=== PATIENT | female | born 1985 | race African-American/Black ===

== ENCOUNTER 2021-10-20 18:42 | Inpatient (IN) | payer BC ==
[~2021-10-20] VITALS: Ht 177.8 cm; Wt 101.4 kg
[2021-10-20 20:49] VITALS: BP 150/84; PULSE 85; TEMP 97.5
[2021-10-21 00:01] VITALS: BP 148/93; PULSE 76; TEMP 98.2
[2021-10-21 04:10] VITALS: BP 141/89; PULSE 81; TEMP 98.3
[2021-10-21] MEDS ORDERED: AMBIEN 5MG TABLE5 MG (04:12)
[2021-10-21] MEDS ORDERED: ATIVAN 0.50.5 MG/TAB (04:12)
[2021-10-21 06:34] LABS: BASO % 0.2 % (0.0-2.0); EOS % 0.5 % (0.0-4.0); GRAN # 3.4 K/mm3 (1.4-6.5); GRAN % 77.9 % (42.2-75.2); HEMOGLOBIN 11.5 g/dl (12.5-16.0); LYMPH # 0.6 K/mm3 (1.2-3.4); LYMPH % 13.2 % (20.0-51.0); MEAN CELL VOLUME 96 fl (80.0-100.0); MEAN CORPUSCULAR HEMOGLOBIN 34 pg (27-31); MEAN CORPUSCULAR HGB CONC 35 g/dl (33.0-37.0); MEAN PLATELET VOLUME 10.4 fl (7.4-10.4); MONO # 0.4 K/mm3 (0.1-0.6); PLATELET COUNT 414 K/mm3 (130-400)
[2021-10-21 06:37] LABS: HEMATOCRIT 32.6 % (37.0-47.0)
[2021-10-21 06:43] LABS: BILIRUBIN,TOTAL 1.2 mg/dL (0.2-1.2); CALCIUM 7.9 mg/dL (8.4-10.2); CREATININE, serum 0.75 mg/dL (0.57-1.11); MAGNESIUM 1.7 mg/dL (1.6-2.6); TOTAL PROTEIN 6.1 gm/dL (6.2-8.1)
--- NOTE | 2021-10-21 07:07 | NUR ---
PATIENT ARRIVED TO FLOOR APPROX 2029. PATIENT HAD COMPLAINTS OF NAUSEA AND DID HAVE 2 EPISODES OF EMESIS. ZOFRAN GIVEN AND PATIENT STILL THREW UP. PATIENT GIVEN 2 DOSES OF IV PHENERGAN AND PATIENT REPORTED EFFECTIVENESS. PATIENT ALSO RECEIVED TWO DOSES OF PRN MORPHINE. PATIENT APPEARED TO REST COMFORTABLY THIS SHIFT.
[2021-10-21 08:19] VITALS: BP 131/86; PULSE 77; TEMP 98.5
--- NOTE | 2021-10-21 09:47 | NUR ---
Initial visit; Patient thanked Service Superintendent for looking in on her and offering information regarding what Service Superintendent can do for her. Patient thanked Service Superintendent who offered God's blessings.
--- NOTE | 2021-10-21 10:30 | NUR ---
PATIENT ALERT AND ORIENTED X4. VSS. PATIENT HERE FOR ABDOMINAL PAIN. PATIENT REPORTS PAIN 6/10, REQUESTS PAIN MEDICATION. IV TO RIGHT AC WITH NS RUNNING AT 100. CONSENT OBTAINED. PATIENT RESTING IN BED WITH CALL LIGHT NEAR.
[2021-10-21 12:00] VITALS: BP 132/88; PULSE 77; TEMP 98
--- NOTE | 2021-10-21 12:31 | NUR ---
Patient currently off floor for procedure. Will attempt to meet at a later time.
--- NOTE | 2021-10-21 14:29 | NUR ---
chute worker met with patient to complete intake and discuss discharge plan. Patient reports that she lives at home in [place] alone. She is independent with her ADL's and does not utilize any DME to assist with mobility and has no home oxygen needs. PCP is Jennifer Starks at [facility] and she utilizes [facility] for prescriptions. Patient reports that she does not have a DPOA-HC established. She is not legally and does not have any adult children. Patient's established NOK is her father Nhan Gonzalez ([phone]). Patient asks about her [place] paperwork, stating that she contacted her PCP office and they told her "the hospital fills it out". I explained that it is usually the PCP. SW made phone call to PCP officer who states that if she was to actually have surgery, the surgeon fills it out, but if not she will need to make an appointment with her PCP to complete the paperwork. Discharge plan: Home
[2021-10-21 16:54] VITALS: BP 136/86; PULSE 78; TEMP 97.9
[2021-10-21] MEDS ORDERED: BRINTELLIX10 PO (19:45)
[2021-10-21] MEDS ORDERED: AMBIEN CR 12.12.5 MG PO (19:47)
[2021-10-21] MEDS ORDERED: ATIVAN 1MG T1 MG/TAB PO (19:47)
[2021-10-21 20:14] VITALS: BP 146/95; PULSE 77; TEMP 97.4
--- NOTE | 2021-10-21 22:39 | NUR ---
SHIFT REPORT FROM JOE WELLS. PATIENT IN BED, ALERT AND ORIENTED. C/O NAUSEA AND PRN PHENERGAN WAS GIVEN. C/O MILD ABD PAIN AND PRN MORPHINE WAS GIVEN. IV WAS LEAKING AND NEW DRESSING APPLIED, IV APPEARS TO BE WORKING WITHOUT ISSUE AT THIS TIME. REQUESTS HOME MEDICATIONS AND [facility] WAS NOTIFIED. DENIES ADDITIONAL ORDERS AT THIS TIME. CALL LIGHT IN REACH.
[2021-10-22 00:13] VITALS: BP 133/78; PULSE 69; TEMP 98
[2021-10-22 04:10] VITALS: BP 140/99; PULSE 64; TEMP 98.2
[2021-10-22 07:44] VITALS: BP 128/90; PULSE 68; TEMP 98.4
[2021-10-22 09:39] LABS: HEMOGLOBIN 10.5 g/dl (12.5-16.0); MEAN CELL VOLUME 98 fl (80.0-100.0); MEAN CORPUSCULAR HEMOGLOBIN 33 pg (27-31); MEAN CORPUSCULAR HGB CONC 34 g/dl (33.0-37.0); MEAN PLATELET VOLUME 10.1 fl (7.4-10.4); PLATELET COUNT 380 K/mm3 (130-400); RED BLOOD COUNT 3.17 M/mm3 (4.10-5.30); REDCELL DISTRIBUTION WIDTH-CV 13.3 % (11.5-14.5)
[2021-10-22 09:42] LABS: HEMATOCRIT 30.9 % (37.0-47.0)
[2021-10-22 12:28] VITALS: BP 138/83; PULSE 68; TEMP 98.8
--- NOTE | 2021-10-22 13:08 | NUR ---
PATIENT ALERT AND ORIENTED X4. VSS. PATIENT HERE FOR RULE OUT OF ENTERITIS VS PANCREATITIS. PATIENT COMPLAINS OF PAIN IN ABDOMEN, RATING 8/10. PATIENT REQUESTS PAIN MEDICATION. NS RUNNING AT 100ML/HOUR IN LEFT FOREARM. PATIENT ON ROOM AIR. ASSESSMENT PERFORMED. AM MEDS ADMINISTERED. PATIENT RESTING IN BED WITH CALL LIGHT NEAR.
[2021-10-22 17:23] VITALS: BP 136/86; PULSE 65; TEMP 98.8
[2021-10-22 20:24] VITALS: BP 148/85; PULSE 73; TEMP 97.7
--- NOTE | 2021-10-22 21:05 | NUR ---
PATIENT IN BED ON ROOM ENTRY. C/O MODERATE PAIN, PRN MORPHINE GIVEN. HS MEDS PER EMAR. TOLERATED CLEAR LIQUID DINNER. IVF INFUSING TO L FA IV WITHOUT ISSUE. DENIES ADDITIONAL NEEDS, CALL LIGHT IN REACH.
[2021-10-23 00:49] VITALS: BP 127/86; PULSE 66; TEMP 98.4
[2021-10-23 04:24] VITALS: BP 132/78; PULSE 65; TEMP 98.6
[2021-10-23 07:00] LABS: BASO % 1.3 % (0.0-2.0); EOS # 0.1 K/mm3 (0.0-0.7); EOS % 3.3 % (0.0-4.0); GRAN # 1.5 K/mm3 (1.4-6.5); GRAN % 49.9 % (42.2-75.2); HEMOGLOBIN 10.8 g/dl (12.5-16.0); LYMPH # 1.1 K/mm3 (1.2-3.4); LYMPH % 34.5 % (20.0-51.0); MEAN CELL VOLUME 102 fl (80.0-100.0); MEAN CORPUSCULAR HEMOGLOBIN 33 pg (27-31); MEAN CORPUSCULAR HGB CONC 32 g/dl (33.0-37.0); MEAN PLATELET VOLUME 10.9 fl (7.4-10.4); MONO # 0.3 K/mm3 (0.1-0.6); MONO % 10.7 % (1.7-9.3); PLATELET COUNT 414 K/mm3 (130-400); RED BLOOD COUNT 3.26 M/mm3 (4.10-5.30); REDCELL DISTRIBUTION WIDTH-CV 13.5 % (11.5-14.5)
[2021-10-23 07:05] LABS: HEMATOCRIT 33.3 % (37.0-47.0)
[2021-10-23 07:21] LABS: ALBUMIN 2.7 gm/dL (3.5-5.0); BILIRUBIN,TOTAL 0.4 mg/dL (0.2-1.2); CALCIUM 8.1 mg/dL (8.4-10.2); CREATININE, serum 0.73 mg/dL (0.57-1.11); POTASSIUM 3.6 mmol/L (3.5-4.5); TOTAL PROTEIN 5.7 gm/dL (6.2-8.1)
[2021-10-23 07:22] VITALS: BP 137/92; PULSE 63; TEMP 98.6
--- NOTE | 2021-10-23 09:12 | NUR ---
PATIENT ALERT AND ORIENTED X4. VSS. PATIENT COMPLAINS OF PAIN 2/10, STATES THAT LEVEL IS TOLERABLE. PATIENT ON ROOM AIR. BOWEL SOUNDS ACTIVE. PATIENT REPORTS TWO BOWEL MOVEMENTS ON 10/22. PATIENT REPORTS SHE IS PASSING GAS AND IS VOIDING WITHOUT ISSUES. IV TO LEFT FOREARM WITH NS RUNNING AT 75ML/HOUR. PATIENT REPORTS ANXIOUSNESS, REQUESTS ATIVAN. PATIENT RESTING IN BED WITH CALL LIGHT NEAR.
[2021-10-23] MEDS ORDERED: PROTONIX 40MG T40 MG PO (12:31)
[2021-10-23] MEDS ORDERED: CVS SPECTRAVIT1 EA15 PO (12:46)
[2021-10-23] MEDS ORDERED: FERROUSAL325 MG PO (12:46)
[2021-10-23] MEDS ORDERED: VITAMIN B12 781 TAB PO (12:46)
--- NOTE | 2021-10-23 15:10 | NUR ---
DISCHARGE INSTRUCTIONS PROVIDED. PATIENT EDUCATION GIVEN. FOLLOW UP APPOINTMENTS DISCUSSED. PATIENT DENIES ANY QUESTIONS OR CONCERNS. IV DC'D. PATIENT ESCORTED OUT VIA WHEELCHAIR.
[2021-10-24] MEDS ORDERED: ROXICODONE 55 MG/TAB PO (15:46)
[2021-10-24] MEDS ORDERED: ZOFRAN ODT4 MG PO (15:46)
== END 2021-10-23 15:00 | disposition home or self-care (01) | DRG 391 ==
LOC: SURG 18:42
PROVIDERS: Internal Medicine Gastroenterology; Student in an Organized Health Care Education/Training Program; ADMIT Internal Medicine
PROC: 0DJ08ZZ Inspection of Upper Intestinal Tract, Via Natural or Artificial Opening Endoscopic (ICD-10-PCS; principal; 2021-10-21 10:30)
DX: K91.2 Postsurgical malabsorption, not elsewhere classified (principal); K85.90 Acute pancreatitis without necrosis or infection, unspecified; K56.609 Unspecified intestinal obstruction, unspecified as to partial versus complete obstruction; F32.A Depression, unspecified; F41.9 Anxiety disorder, unspecified; K26.9 Duodenal ulcer, unspecified as acute or chronic, without hemorrhage or perforation; K52.9 Noninfective gastroenteritis and colitis, unspecified; Z72.89 Other problems related to lifestyle; Z90.49 Acquired absence of other specified parts of digestive tract
CPT/HCPCS: C9113; J2270; J2405; J2550; J2704; J3411; J3475; J7030

== ENCOUNTER 2021-10-24 13:43 | Emergency (ER) | payer BC ==
[~2021-10-24] VITALS: Ht 177.8 cm; Wt 98.2 kg
[~2021-10-24 13:43] MED LIST: AMBIEN 5MG TABLE5 MG; AMBIEN CR 12.12.5 MG PO; ATIVAN 0.50.5 MG/TAB; ATIVAN 1MG T1 MG/TAB PO; BRINTELLIX10 PO; CVS SPECTRAVIT1 EA15 PO; FERROUSAL325 MG PO; PROTONIX 40MG T40 MG PO; VITAMIN B12 781 TAB PO
[2021-10-24 13:58] VITALS: BP 162/74; PULSE 80; TEMP 98.7
[2021-10-24 14:43] LABS: BASO % 0.6 % (0.0-2.0); EOS # 0.1 K/mm3 (0.0-0.7); EOS % 1.4 % (0.0-4.0); GRAN # 3.5 K/mm3 (1.4-6.5); GRAN % 70.1 % (42.2-75.2); LYMPH # 0.9 K/mm3 (1.2-3.4); LYMPH % 18.7 % (20.0-51.0); MEAN CORPUSCULAR HEMOGLOBIN 33 pg (27-31); MEAN CORPUSCULAR HGB CONC 35 g/dl (33.0-37.0); MEAN PLATELET VOLUME 10.1 fl (7.4-10.4); MONO # 0.5 K/mm3 (0.1-0.6); MONO % 9.2 % (1.7-9.3); PLATELET COUNT 472 K/mm3 (130-400); RED BLOOD COUNT 3.61 M/mm3 (4.10-5.30)
[2021-10-24 14:48] LABS: SQUAMOUS EPITHELIAL 0-2 /hpf (0-10); URINE BACTERIA None Seen /hpf (NONE SEEN); URINE RBC 0-2 /hpf (0-2); URINE WBC 0-2 /hpf (0-2)
[2021-10-24 14:48] LABS: HEMATOCRIT 34.3 % (37.0-47.0); MEAN CELL VOLUME 95 fl (80.0-100.0)
[2021-10-24 14:52] LABS: URINE APPEARANCE Clear (CLEAR/HAZY); URINE COLOR Yellow (YELLOW)
[2021-10-24 14:53] LABS: URINE BLOOD Negative (NEGATIVE); URINE GLUCOSE Negative (NEGATIVE); URINE KETONE 1+ (NEGATIVE); URINE NITRATE Negative (NEGATIVE); URINE PROTEIN(semi-quant) Negative (NEGATIVE); URINE UROBILINOGEN 0.2 E.U/dL (0.2-1.0)
[2021-10-24 14:55] LABS: COLLECTION METHOD CLEAN CATCH
[2021-10-24 15:04] LABS: ALBUMIN 3.6 gm/dL (3.5-5.0); BILIRUBIN,TOTAL 0.5 mg/dL (0.2-1.2); CALCIUM 8.9 mg/dL (8.4-10.2); CREATININE, serum 0.82 mg/dL (0.57-1.11); POTASSIUM 3.4 mmol/L (3.5-4.5); TOTAL PROTEIN 7.2 gm/dL (6.2-8.1)
[2021-10-24] MEDS ORDERED: ROXICODONE 55 MG/TAB PO (15:46)
[2021-10-24] MEDS ORDERED: ZOFRAN ODT4 MG PO (15:46)
== END 2021-10-24 16:14 | disposition home or self-care (01) ==
LOC: COL.ER 13:43
PROVIDERS: Emergency Medicine
DX: K85.90 Acute pancreatitis without necrosis or infection, unspecified (principal); R74.8 Abnormal levels of other serum enzymes; R74.01 Elevation of levels of liver transaminase levels; Z98.84 Bariatric surgery status; Z32.02 Encounter for pregnancy test, result negative; Z28.310 Unvaccinated for COVID-19
CPT/HCPCS: J2270; J2405; J7120

== ENCOUNTER → 2021-11-07 | Outpatient (CLI) | payer BC ==
[~2021-11-07] MED LIST changes: +ROXICODONE 55 MG/TAB PO; +ZOFRAN ODT4 MG PO
== END ==
LOC: COL.RAD 09:55
DX: K75.9 Inflammatory liver disease, unspecified (principal); Z90.49 Acquired absence of other specified parts of digestive tract